=== PATIENT | female | born 1960 | race Caucasian/White ===

== ENCOUNTER 2017-05-09 14:01 | Emergency (ER) | payer OTHER ==
[~2017-05-09] VITALS: Ht 188 cm; Wt 160.0 kg
[2017-05-09 14:09] VITALS: BP 160/78; PULSE 92; RESP 15; TEMP 98.2; O2SAT 98
[2017-05-09] MEDS ORDERED: LOSA100T PO (15:30)
[2017-05-09] MEDS ORDERED: ATOR40TA16 PO (15:30)
[2017-05-09] MEDS ORDERED: CELE40TA PO (15:30)
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
[2017-05-09] MEDS ORDERED: HYDR-3533 PO (17:27)
== END 2017-05-09 18:23 | disposition home or self-care (01) ==
LOC: NEPK 14:01
DX: S62.101A Fracture of unspecified carpal bone, right wrist, initial encounter for closed fracture (principal); V29.9XXA Motorcycle rider (driver) (passenger) injured in unspecified traffic accident, initial encounter
CPT/HCPCS: 29125; 73090; 73130